=== PATIENT | male | born 1990 ===

== ENCOUNTER 2020-02-13 21:42 | Emergency (ER) | payer SELFPAY ==
[2020-02-13 22:04] VITALS: BP 133/78
[2020-02-14] MEDS ORDERED: DIPHtheria,PERTUSSIS(ACELL),TETANUS VACCINE/PF 0.5 ML VIAL IM ONE (05:40)
[2020-02-14] MEDS ORDERED: RABIES VACCINE, HUMAN DIPLOID/PF 2.5 UNIT/ML VIAL IM ONE (05:40)
[2020-02-14] MEDS ORDERED: RABIES IMMUNE GLOBULIN P/F 300 UNIT/ML INJ 5 ML IM ONE (05:40)
[2020-02-14] MEDS ORDERED: AMOXICILLIN/K CLAV 875/125MG TAB PO ONE (05:40)
[2020-02-14] MEDS ORDERED: HYDROcodone/ACETAMINOPHEN 5-325 MG TAB PO ONE (05:40)
--- NOTE | 2020-02-14 06:09 | Emergency Department Report ---
ED Animal Bite HPI - General Chief Complaint: Animal Bite Stated Complaint: DOG BITE ON BOTH LEGS Time Seen by Provider: 02/14/20 05:40 Source: patient Mode of arrival: Ambulatory Limitations: No Limitations - History of Present Illness Initial Comments: Patient is a 29-year-old male who presents with bilateral posterior leg dog bites, patient states he was walking through his neighborhood when a dog chased him and bit him in his posterior tib fibs distal to the calf muscle. Bites are superficial to both legs. They are all bleeding is controlled by direct pressure applied by patient prior to arrival to ED. Tetanus status is unknown, patient has no known drug allergies. States he called animal control. This pending investigation for [facility], call was verified by nursing service. I have reviewed the nursing chart, there is no numbness, tingling, paralysis. Patient is amatory with steady gait. Pain at this time is 4/10 aching. MD Complaint: animal bite Onset/Timin -: days(s) Left: Leg (bilat posterior leg ), Right: Leg Animal: dog Animal Control Notified: Yes Description: unknown animal, immunizations unknown Mechanism: bite Pain Description: sharp Severity scale (0 -10): 4 Associated Symptoms: erythema Treatments Prior to Arrival: wound dressing(s) - Related Data Patient Tetanus UTD: No Previous Rx's Medication Instructions Recorded Last Taken Type Amoxicillin/Potassium Clav 1 each PO BID 10 Days #20 tablet 02/14/20 Unknown Rx [Augmentin 875-125 Tablet] traMADoL [Ultram] 50 mg PO Q6HR PRN #12 tablet 02/14/20 Unknown Rx Allergies Allergy/AdvReac Type Severity Reaction Status Date / Time No Known Allergies Allergy Verified 02/14/20 06:01 ED Review of Systems ROS: Stated complaint: DOG BITE ON BOTH LEGS Other details as noted in HPI Constitutional: denies: chills, fever Eyes: denies: eye pain, eye discharge, vision change ENT: denies: ear pain, throat pain Respiratory: denies: cough, shortness of breath, wheezing Cardiovascular: denies: chest pain, palpitations Endocrine: no symptoms reported Gastrointestinal: as per HPI Genitourinary: denies: urgency, dysuria Musculoskeletal: as per HPI Skin: other (animal bites bilat posterior tib fib ) Neurological: denies: headache, weakness, paresthesias Psychiatric: denies: anxiety, depression Hematological/Lymphatic: denies: easy bleeding, easy bruising ED Past Medical Hx - Past Medical History Previous Medical History?: No - Surgical History Past Surgical History?: No - Social History Smoking Status: Current Every Day Smoker Substance Use Type: None - Medications Home Medications: Home Medications Medication Instructions Recorded Confirmed Last Taken Type Amoxicillin/Potassium Clav 1 each PO BID 10 Days #20 tablet 02/14/20 Unknown Rx [Augmentin 875-125 Tablet] traMADoL [Ultram] 50 mg PO Q6HR PRN #12 tablet 02/14/20 Unknown Rx ED Physical Exam - General Limitations: No Limitations General appearance: alert, in no apparent distress - Head Head exam: Present: atraumatic, normocephalic - Eye Eye exam: Present: normal appearance - ENT ENT exam: Present: mucous membranes moist - Neck Neck exam: Present: normal inspection - Respiratory Respiratory exam: Present: normal lung sounds bilaterally - Cardiovascular Cardiovascular Exam: Present: regular rate, normal rhythm. Absent: systolic murmur, diastolic murmur, rubs, gallop - GI/Abdominal GI/Abdominal exam: Present: soft - Rectal Rectal exam: Present: deferred - Extremities Exam Extremities exam: Present: normal inspection, full ROM, tenderness (to dog bite sites 3 cm each superficial no bleedin no nerve tendon or muscle damage, rom intact unrestricted ), normal capillary refill. Absent: pedal edema, calf tenderness - Back Exam Back exam: Present: normal inspection, full ROM. Absent: tenderness - Neurological Exam Neurological exam: Present: alert, oriented X3 - Psychiatric Psychiatric exam: Present: normal affect, normal mood - Skin Skin exam: Present: warm, dry, normal color, erythema, other (Dog bites as above ). Absent: rash ED Course Vital Signs 02/13/20 22:02 Temperature 98.3 F Pulse Rate 108 H Respiratory 20 Rate Blood Pressure 133/78 O2 Sat by Pulse 98 Oximetry - Procedure Description Procedures done: wound care, irrigation , tetanus booster, Augmentin po, rabies immunicatin, and immunoglobulin at wound sites, Sterile dressing applied, pt tolerated procedure with minimal distresss. Critical care attestation.: If time is entered above; I have spent that time in minutes in the direct care of this critically ill patient, excluding procedure time. ED Disposition Clinical Impression: Dog bite Qualifiers: Encounter type: initial encounter Qualified Code(s): W54.0XXA - Bitten by dog, initial encounter Disposition: - TO HOME OR SELFCARE Is pt being admited?: No Does the pt Need Aspirin: No Condition: Stable Instructions: Animal Bite (ED) Additional Instructions: follow up with health department or primary care for follow up rabies immunizaitons as directed, take antibiotics as directed , return to emergency if symptoms worsen. , soap and water wound care as directed. Prescriptions: Amoxicillin/Potassium Clav [Augmentin 875-125 Tablet] 1 each PO BID 10 Days #20 tablet traMADoL [Ultram] 50 mg PO Q6HR PRN #12 tablet PRN Reason: Pain Referrals: [facility] [Provider Group] - 3-5 Days [facility] [Outside] - 3-5 Days Forms: Work/School Release Form(ED) Time of Disposition: 06:51
== END 2020-02-14 07:04 | disposition home or self-care (01) ==
LOC: ED 21:42
DX: S81.852A Open bite, left lower leg, initial encounter (principal); S81.851A Open bite, right lower leg, initial encounter; F17.200 Nicotine dependence, unspecified, uncomplicated; Z79.2 Long term (current) use of antibiotics; Z79.899 Other long term (current) drug therapy; W54.0XXA Bitten by dog, initial encounter; Y93.89 Activity, other specified; Y92.89 Other specified places as the place of occurrence of the external cause; Y99.8 Other external cause status
CPT/HCPCS: 90375; 90471; 90472; 90675; 90715; 96372; 99282